=== PATIENT | female | born 1970 ===

== ENCOUNTER → 2017-01-20 | Outpatient (CLI) | payer MEDICAID | LOC: CIMAGING 10:22 | PROVIDERS: ATTEND Family Medicine | DX: R94.5 Abnormal results of liver function studies (principal); K76.0 Fatty (change of) liver, not elsewhere classified | CPT/HCPCS: 76705-PO ==

== ENCOUNTER 2017-04-19 03:04 | Observation (INO) | payer MEDICAID ==
--- NOTE | 2017-04-19 03:19 | CPEKG ---
Heart Rate: 158 RR Interval: 380 QRSD Interval: 72 QT Interval: 296 QTC Interval: 480 QRS [place]: 50 T Wave [place]: -40 EKG Severity - ABNORMAL ECG - EKG Impression: ATRIAL FIBRILLATION, V-RATE 94-195 EKG Impression: BORDERLINE T ABNORMALITIES, INFERIOR LEADS Electronically Signed By: Nissa Gordon 19-Apr-2017 06:25:01
[2017-04-19] MEDS ORDERED: DILTIAZEM 125 MG in NS 100 ML IV ONE (03:27)
[2017-04-19] MEDS ORDERED: DILTIAZEM 25 MG/5 ML VIAL IVP ONE (03:27)
[2017-04-19 03:30] LABS: % IMMATURE GRANULYOCYTES 1.3 % (0.0-1.1); ABSOLUTE IMMATURE GRANULOCYTES 0.16 10^3/uL (0.00-0.10); ADD DIFF? NO; ADD MORPH? NO; ADD SCAN? NO; ATYPICAL LYMPHOCYTE FLAG 10 (0-99); FRAGMENT RBC FLAG 0 (0-99); HEMATOCRIT 42.4 % (38.0-47.0); HEMOGLOBIN 14.6 g/dL (12.6-16.3); LEFT SHIFT FLG 10 (0-99); LIPEMIA HEMOLYSIS FLAG 90 (0-99); MEAN CELL HEMOGLOBIN 29.3 pg (27.9-34.1); MEAN CELL HEMOGLOBIN CONCENTR. 34.4 g/dL (32.4-36.7); MEAN CELL VOLUME 85.1 fL (81.5-99.8); MEAN PLATELET VOLUME 9.3 fL (8.7-11.7); PLATELET CLUMPS FLAG 10 (0-99); PLATELET COUNT 371 10^3/uL (150-400); RED BLOOD CELL COUNT 4.98 10^6/uL (4.18-5.33)
[2017-04-19] MEDS ORDERED: NS 1,000 ML IV SCH (03:30)
[2017-04-19 03:42] LABS: ALANINE AMINOTRANSFERASE 166 IU/L (9-52); ALKALINE PHOSPHATASE 139 IU/L (38-126); ANION GAP 14 mEq/L (8-16); ASPARTATE AMINOTRANSFERASE 60 IU/L (14-46); BILIRUBIN,TOTAL 0.7 mg/dL (0.1-1.4); BILIRUBIN-CONJUGATED 0.5 mg/dL (0.0-0.5); BILIRUBIN-UNCONJUGATED 0.2 mg/dL (0.0-1.1); CALCIUM 9.1 mg/dL (8.5-10.4); CARBON DIOXIDE 23 mEq/l (22-31); CHLORIDE 102 mEq/L (97-110); CREATININE 0.5 mg/dL (0.6-1.0); GLOMERULAR FILTRATION RATE > 60; GLUCOSE 160 mg/dL (70-100); MAGNESIUM 2.1 mg/dL (1.6-2.3); SODIUM 139 mEq/L (134-144); TOTAL PROTEIN 7.2 g/dL (6.3-8.2)
--- NOTE | 2017-04-19 03:51 | EDPHY ---
H & P Time Seen by Provider: 04/19/17 03:09 HPI/ROS: CC: "My heart is jiggling" HPI: This 46-year-old female with past medical history of back pain, uterine fibroids and hepatic steatosis, presents to the emergency department today complaining of a rapid heart rate that started around 10:30 p.m. last evening. She states she was awake and reading when she felt her heart start racing. She started monitoring her blood pressure and it dropped from 150mmHg to 120mmHg systolic. She felt some mild shortness of breath and lightheadedness. She denied chest pain, neck or jaw pain, back pain, or arm pain. She does admit to having an aching in her throat for the last couple of days. She has had no nausea or vomiting. She has felt hot and cold. She denies recent illness. No recent OTC medications. She does not drink alcohol. REVIEW OF SYSTEMS: Constitutional: No fever, no chills. Eyes: No discharge. ENT: See HPI. Respiratory: No cough. Cardiac: No chest pain. Gastrointestinal: No abdominal pain, no vomiting. Genitourinary: No hematuria or dysuria. LMP: 8 months ago Musculoskeletal: Chronic back pain. Skin: No rashes. Neurological: No headache. Past Medical/Surgical History: Past medical history includes back pain, uterine fibroids, hepatic steatosis Past surgical history includes tonsillectomy Family history includes father with some sort of heart condition Last menstrual period approximately 8 months ago and irregular She is not sexually active Allergies to penicillin Medications cromolyn and ibuprofen Primary care provider Dr. Estrella Smith Social History: The patient does not drink alcohol, use tobacco or marijuana products or illicit drugs Smoking Status: Never smoked Physical Exam: General Appearance: Alert, mild distress. Eyes: Pupils equal and round no pallor or injection. ENT, Mouth: Mucous membranes are moist. Respiratory: There are no retractions, lungs are clear to auscultation. No rales, rhonchi or wheezing. Cardiovascular: irregularly irregular, tachycardic. No murmur, gallops or rubs. Gastrointestinal: Abdomen is soft and nontender, no masses, bowel sounds normal. Neurological: Awake and alert, sensory and motor exams grossly normal. Skin: Warm and dry, no rashes. Musculoskeletal: Neck is supple nontender. Extremities are symmetrical, full range of motion. No calf tenderness, warmth, cords or erythema. Psychiatric: Patient is oriented X 3, there is no agitation. DIFFERENTIAL DIAGNOSIS: After history and physical exam differential diagnosis was considered for but not limited to: [atrial or ventricular tachycardia, a- fib with RVR, WPW, hyperthyroidism, electrolyte abnormality, anemia, cardiac ischemia] Constitutional: Initial Vital Signs Temperature (C) 97.5 F 04/19/17 03:05 Heart Rate 166 H 04/19/17 03:05 Respiratory Rate 16 04/19/17 03:05 Blood Pressure 114/97 H 04/19/17 03:05 O2 Sat (%) 97 04/19/17 03:05 O2 Delivery Mode Nasal Cannula O2 (L/minute) 2 Allergies/Adverse Reactions: Penicillins Allergy (Verified 04/19/17 03:21) Home Medications: Medication Instructions Recorded Cromolyn Sodium 04/19/17 Medical Decision Making - Diagnostics Imaging: I viewed and interpreted images myself (Portable CXR - NAD by my reading) ED Course/Re-evaluation: The patient was seen and examined. Vital signs reviewed. An IV was placed and labs were drawn. EKG revealed atrial fibrillation with a heart rate of 158 bpm. The patient was given 20 mg of Diltiazem IV push which dropped her blood pressure to 82 mmHg without increase in symptoms. Her heart rate also dropped to 102-128 bpm. She was given a fluid bolus which returned her blood pressure to 118mmHg systolic fairly quickly. A Diltiazem drip was started and titrated per protocol. Her labs showed a slightly elevated WBC count, BG 186, elevated transaminases (h/o elevated LFTs with hepatic steatosis), normal troponin. TSH is slightly elevated at 5.7. PT/PTT normal. Her portable chest x-ray showed no acute abnormality per my reading. She will be transferred to [facility] PCU for further evaluation and treatment after talking with the Hospitalist, Dr. Eder Taylor. [id number] VASc Score 1. - Data Points Laboratory Results: Laboratory Results 04/19/17 03:24 04/19/17 03:24 04/19/17 04/19/17 04/19/17 03:24 03:24 03:24 WBC 12.11 10^3/uL H 10^3/uL (3.80-9.50) RBC 4.98 10^6/uL 10^6/uL (4.18-5.33) Hgb 14.6 g/dL g/dL (12.6-16.3) Hct 42.4 % % (38.0-47.0) MCV 85.1 fL fL (81.5-99.8) MCH 29.3 pg pg (27.9-34.1) MCHC 34.4 g/dL g/dL (32.4-36.7) RDW 14.0 % % (11.5-15.2) Plt Count 371 10^3/uL 10^3/uL (150-400) MPV 9.3 fL fL (8.7-11.7) Neut % (Auto) 63.8 % % (39.3-74.2) Lymph % (Auto) 23.1 % % (15.0-45.0) [place] % (Auto) 6.1 % % (4.5-13.0) Eos % (Auto) 5.0 % % (0.6-7.6) Baso % (Auto) 0.7 % % (0.3-1.7) Nucleat RBC Rel Count 0.0 % % (0.0-0.2) Absolute Neuts (auto) 7.73 10^3/uL H 10^3/uL (1.70-6.50) Absolute Lymphs (auto) 2.80 10^3/uL 10^3/uL (1.00-3.00) Absolute Monos (auto) 0.74 10^3/uL 10^3/uL (0.30-0.80) Absolute Eos (auto) 0.60 10^3/uL H 10^3/uL (0.03-0.40) Absolute Basos (auto) 0.08 10^3/uL 10^3/uL (0.02-0.10) Absolute Nucleated RBC 0.00 10^3/uL 10^3/uL (0-0.01) Immature Gran % 1.3 % H % (0.0-1.1) Immature Gran # 0.16 10^3/uL H 10^3/uL (0.00-0.10) PT Pending INR Pending APTT Pending Sodium 139 mEq/L mEq/L (134-144) Potassium 4.0 mEq/L mEq/L (3.5-5.2) Chloride 102 mEq/L mEq/L (97-110) Carbon Dioxide 23 mEq/l mEq/l (22-31) Anion Gap 14 mEq/L mEq/L (8-16) BUN 9 mg/dL mg/dL (7-23) Creatinine 0.5 mg/dL L mg/dL (0.6-1.0) Estimated GFR > 60 Glucose 160 mg/dL H mg/dL (70-100) Calcium 9.1 mg/dL mg/dL (8.5-10.4) Magnesium 2.1 mg/dL mg/dL (1.6-2.3) Total Bilirubin 0.7 mg/dL mg/dL (0.1-1.4) Conjugated Bilirubin 0.5 mg/dL mg/dL (0.0-0.5) Unconjugated Bilirubin 0.2 mg/dL mg/dL (0.0-1.1) AST 60 IU/L H IU/L (14-46) ALT 166 IU/L H IU/L (9-52) Alkaline Phosphatase 139 IU/L H IU/L (38-126) Troponin I < 0.012 ng/mL ng/mL (0.000-0.034) Total Protein 7.2 g/dL g/dL (6.3-8.2) Albumin 4.0 g/dL g/dL (3.5-5.0) TSH 5.740 uIU/mL H uIU/mL (0.465-4.680) Medications Given: Sodium Chloride (Ns) 1,000 mls @ 500 mls/hr IV CONT MONTY Stop: 10/16/17 03:29 Last Admin: 04/19/17 03:41 Dose: 1,000 mls Discontinued Medications Diltiazem HCl (Cardizem 25 Mg/5 Ml Vial) 20 mg IVP EDNOW ONE Stop: 04/19/17 03:28 Last Admin: 04/19/17 03:35 Dose: 20 mg Diltiazem HCl 125 mg/ Sodium (Chloride) 125 mls @ 0 mls/hr IV EDNOW ONE; Titrate PRN Reason: Protocol Stop: 04/19/17 03:28 Last Admin: 04/19/17 03:51 Dose: 125 mls
[2017-04-19 04:09] LABS: TROPONIN I < 0.012 ng/mL (0.000-0.034)
[2017-04-19 04:22] LABS: INR 1.02 (0.83-1.16); PROTIME(PATIENT) 13.1 SEC (12.0-15.0)
[2017-04-19] MEDS ORDERED: NS 1,000 ML IV ONE (05:33)
[2017-04-19] MEDS ORDERED: oxyCODONE IR 5 MG TAB PO PRN (07:13)
[2017-04-19] MEDS ORDERED: ONDANSETRON DISINTEGRATING 4 MG TAB PO PRN (07:13)
[2017-04-19] MEDS ORDERED: DILTIAZEM 125 MG in D5W 125 ML IV SCH (07:15)
--- NOTE | 2017-04-19 07:56 | GHP ---
[f rep st] HISTORY AND PHYSICAL DATE OF ADMISSION: 04/19/2017 CHIEF COMPLAINT: Palpitations. HISTORY OF PRESENT ILLNESS: This is a 46-year-old female who has a history of back pain, who present s with a feeling of some palpitations associated with dizziness. She took her blood pressure and it was initially elevated. She took it again and it was back in its normal range. She did have some di zziness and possibly a small headache associated with this. She has not fainted. She says that for the past few days she has felt some strain across her chest as though she did yoga too long. She als o says that she had some sensation in her throat of something abnormal. She has never been treated f or hypertension or diabetes. PAST MEDICAL/SURGICAL HISTORY: Back pain. MEDICATIONS: Please see medication reconciliation. ALLERGIES: Penicillin. SOCIAL HISTORY: She is accompanied by her cousin. FAMILY HISTORY: Reviewed and noncontributory. REVIEW OF SYSTEMS: Ten-point review of systems is conducted and is negative except per HPI. PHYSICAL EXAM: VITAL SIGNS: Blood pressure 114/80, heart rate 114, respiration rate 20, saturating 94% on 2 L. GENERAL: The patient is a pleasant female who is resting comfortably in bed, no acute d istress. HEENT: Normocephalic, atraumatic. CARDIOVASCULAR: She is tachycardic. She is irregularl y irregular. There are no murmurs, rubs, or gallops. No elevated JVD. She has trace bilateral lowe r extremity edema. ABDOMEN: Soft, nontender, nondistended. SKIN: No rash. : No Theodore. NEUROLO GIC: She is alert and oriented x3. She is moving all extremities. PSYCHIATRIC: Normal mood and af fect. LABORATORY DATA: White count of 12.1 with a normal distribution. INR is 1. Creatinine 0.5, AST is 60, ALT is 166. TSH is 5.7. DATA: 1. I discussed this with Dr. Gordon. Will admit to PCU. 2. I reviewed her chest x-ray. This shows somewhat under-penetrated study. Normal heart size. Not kike acute. 3. I personally viewed and interpreted her EKG. This shows atrial fibrillation. She has T-wave inv ersions in II, III and aVF. IMPRESSION AND PLAN: A 46-year-old female with new-onset atrial fibrillation. 1. Atrial fibrillation: Still tachycardic on diltiazem drip. Will continue this and up-titrate. H er blood pressure thus far is tolerating it. If she does not convert to sinus rhythm or if we have s ignificant problems controlling her rate, would consider cardiology consultation for GILLIAN cardioversio n. Her CHADS2-VASc score is 1. I have started her on an aspirin. In terms of the reason why she we nt into AFib, she has a slightly elevated TSH, which does not explain it. Will check an echocardiogr am. She complained of right-sided pleuritic rib pain. I will check a D-dimer. If this is positive, would consider CT angiogram, especially if echocardiogram is unremarkable or shows increased right-s ided pressures. 2. Elevated liver function tests: She has a recent ultrasound showing hepatic steatosis, which like ly explains this. /[id number]/MODL
[2017-04-19] MEDS: NS 1,000 ML IV SCH ×2 (07:59→21:42)
[2017-04-19] MEDS: ASPIRIN EC 81 MG TAB PO SCH ×2 (07:59→10:06)
[2017-04-19] MEDS: ACETAMINOPHEN 325 MG TAB PO PRN ×2 (09:15→21:41)
--- NOTE | 2017-04-19 10:30 | ECHO ---
[email or web address] [address] [address] Main: [phone] Fax: Transthoracic Echocardiogram Name: RICHARD PIEDRA MR#: [id number] Study Date: 04/19/2017 Study Time: 07:48 AM Date of : 1970 Age: 46 year(s) Height: 160 cm (63 in.) Weight: 94.35 kg (208 lb.) BSA: 1.97 m2 Gender: Female Examination: Echo Indication: Image Quality: Adequate Contrast: Requested by: Andrew Taylor Heart Rate: Rhythm: Atrial fibrillation BP: 93 mmHg/63 mmHg Procedure Staff Ordering Physician: C[employer] Worker: Tiera King Reading Physician: Measurements: Chambers Valvular Assessment AV/MV Valvular Assessment TV/PV Normal Normal Normal Name Value Range Name Value Range Name Value Range Ao [place] (MM): 3.0 cm (2.2 cm-3.7 AV meanP mmHg ( - ) TR Vmax: 2.16 mm/s ( - ) cm) MV E Vmax: 0.83 cm/s ( - ) TR PGmax: 19 mmHg ( - ) IVSd (2D): 1.0 cm (0.6 cm-1.1 syst. PAP: 24 mmHg ( - ) cm) LVDd (2D): 4.3 cm (3.9 cm-5.3 cm) LVDs (2D): 2.3 cm (2.1 cm-4 cm) LVPWd (2D): 1.0 cm ( - ) LVEF (2D): 78 (>=54 %) Continued Measurements: Chambers Valvular Assessment AV/MV Valvular Assessment TV/PV Name Value Name Value Name Value LA Area: 25.5 cm? MV E/E' Septal: 6.30 CVP (est.): 5 LA Volume: 86 ml MV E/E' Lateral: 8.20 LA Volume Index: 43.7 ml/m? Findings: Left Ventricle: Normal size left ventricle. Mild concentric LV hypertrophy. Global hypercontractility of the left ventricle (EF 78 %). No LVOT obstruction. Right Ventricle: Normal size right ventricle. Patient: RICHARD PIEDRA Study Date: 04/19/2017 Page 1 of 2 07:48 AM Left Atrium: The left atrium is normal in size. Right Atrium: The right atrium is normal in size. Mitral Valve: The mitral valve is normal in appearance. Aortic Valve: The aortic valve is normal in appearance. Tricuspid Valve: The tricuspid valve appears normal. Trivial to mild tricuspid valve regurgitation. Pulmonic Valve: Pulmonary valve not well visualized. Great Vessels: Pericardium: No pericardial effusion. There is pericardial fat. (No Signature Object) Patient: RICHARD PIEDRA Study Date: 04/19/2017 Page 2 of 2 07:48 AM [id number]
--- NOTE | 2017-04-19 13:52 | HOSPPROG ---
Hospitalist Progress Note Assessment/Plan: # acute atrial fibrillation with rapid ventricular response- patient with heart rates in the 160s at presentation EKG (personally reviewed and interpreted) atrial fibrillation heart rates [address]-T changes - TSH 5.7 and Dimer negative TTE (reviewed) without acute changes ejection fraction greater than 70% oxygen saturations 96% on 2L - continue IV diltiazem drip - cardiology consulted for possible GILLIAN cardioversion - cont aspirin # hepatic steatosis- mild elevation in transaminases AST 80's /ALT 160's # prophylaxis Lovenox # diet NPO until cardiology eval # disposition greater than 2 midnights as patient needs more diagnostic workup for atrial fibrillation and possible cardioversion I have discussed the case with Cardiology they will consult and provide recommendations related to cardioversion Subjective: hungry Objective: Vital Signs Temp Pulse Resp BP Pulse Ox 37.1 C 108 H 16 109/80 92 04/19/17 11:44 04/19/17 12:11 04/19/17 11:44 04/19/17 11:44 04/19/17 11:44 04/18/17 04/19/17 04/20/17 05:59 05:59 05:59 Intake Total 1500 Output Total 950 Balance 550 PT 13.1 SEC (12.0-15.0) 04/19/17 03:24 INR 1.02 (0.83-1.16) 04/19/17 03:24 - Physical Exam Constitutional: obese Eyes: anicteric sclera Ears, Nose, Mouth, Throat: moist mucous membranes Cardiovascular: irregularly irregular, tachycardia Respiratory: no respiratory distress Gastrointestinal: normoactive bowel sounds, soft, non-tender abdomen Genitourinary: no bladder fullness Skin: warm Musculoskeletal: No asymmetric calves Neurologic: AAOx3 Psychiatric: interacting appropriately, not anxious Lymph, Heme, Immunologic: no cervical LAD ICD10 Worksheet Patient Problems: Problems Problem Status Onset Atrial fibrillation with rapid ventricular response Acute - ICD10 Problem Qualifiers (1) Atrial fibrillation with rapid ventricular response
--- NOTE | 2017-04-19 16:20 | PDCARPN ---
Cardiology Progress Note Assessment/Plan: Assessment: Atrial Flutter with ventricular rate 140 to 160 on admission. Diltiazem IV drip started and rate now down to 80 with episodes of faster flutter. She is tolerating it well. Her CHADS VASC score is 1. Will plan to make her NPO at [place] for GILLIAN-DCCV in AM if she has not converted to sinus rhythm by morning. We will start her on Eliquis this evening to provide anticoagulation for prior to procedure. She is in agreement with this plan. This was discussed with her son during the visit. Plan: Start Eliquis this evening. GILLIAN / DCCV in AM if not converted. 04/19/17 16:15 Reviewed/Discussed With: family, hospitalist, multidisciplinary team Time Spent With Patient: 30 minutes face to face Objective: Vital Signs (8 Hrs) Temp Pulse Resp BP Pulse Ox 04/19/17 12:11 108 H 04/19/17 11:44 37.1 C 96 16 109/80 92 Intake/Output (24 Hrs) 04/18/17 04/19/17 04/20/17 05:59 05:59 05:59 Intake Total 1500 Output Total 950 Balance 550 Intake: IV Infused (ml) 1500 Output: Urine (ml) 950 Other: Weight 94.347 kg Number of Voids Toilet 1 Result Diagrams: 04/19/17 03:24 04/19/17 03:24 Cardiac Labs: Cardiac Lab Results (72 Hrs) 04/19/17 12:25 Troponin I 0.025 - Physical Exam Cardiovascular: no murmurs, no rubs, no gallops, irregularly irregular Respiratory: clear to auscultate bilat, no crackles, no wheezes Skin: warm, no edema Neurologic: AAOx3 Psychiatric: cooperative, interactive ICD10 Worksheet Patient Problems: Problems Problem Status Onset Atrial fibrillation with rapid ventricular response Acute
[2017-04-19] MEDS: APIXABAN 5 MG TAB PO SCH (20:13)
[2017-04-19] MEDS: DILTIAZEM 30 MG TAB PO SCH (20:13)
[2017-04-20] MEDS: DILTIAZEM 30 MG TAB PO SCH ×2 (00:46→06:25)
[2017-04-20 04:19] VITALS: O2SAT 94
[2017-04-20 05:35] LABS: INR 1.14 (0.83-1.16); PROTIME(PATIENT) 14.5 SEC (12.0-15.0)
[2017-04-20 05:36] LABS: APTT 31.1 SEC (23.0-38.0)
[2017-04-20 05:37] LABS: % IMMATURE GRANULYOCYTES 1.5 % (0.0-1.1); ABSOLUTE IMMATURE GRANULOCYTES 0.15 10^3/uL (0.00-0.10); ADD DIFF? NO; ADD MORPH? NO; ADD SCAN? NO; ATYPICAL LYMPHOCYTE FLAG 0 (0-99); FRAGMENT RBC FLAG 0 (0-99); HEMATOCRIT 38.5 % (38.0-47.0); HEMOGLOBIN 12.6 g/dL (12.6-16.3); LEFT SHIFT FLG 10 (0-99); LIPEMIA HEMOLYSIS FLAG 80 (0-99); MEAN CELL HEMOGLOBIN 29.1 pg (27.9-34.1); MEAN CELL HEMOGLOBIN CONCENTR. 32.7 g/dL (32.4-36.7); MEAN CELL VOLUME 88.9 fL (81.5-99.8); MEAN PLATELET VOLUME 10.1 fL (8.7-11.7); PLATELET CLUMPS FLAG 0 (0-99); PLATELET COUNT 320 10^3/uL (150-400); RED BLOOD CELL COUNT 4.33 10^6/uL (4.18-5.33); RED CELL DISTRIBUTION WIDTH 14.2 % (11.5-15.2)
[2017-04-20 05:45] LABS: ANION GAP 9 mEq/L (8-16); CALCIUM 8.9 mg/dL (8.5-10.4); CARBON DIOXIDE 22 mEq/l (22-31); CHLORIDE 109 mEq/L (97-110); CREATININE 0.6 mg/dL (0.6-1.0); GLOMERULAR FILTRATION RATE > 60; GLUCOSE 114 mg/dL (70-100); POTASSIUM 4.2 mEq/L (3.5-5.2); SODIUM 140 mEq/L (134-144)
[2017-04-20] MEDS ORDERED: ATROPINE SULFATE 1 MG/10 ML SYR IVP ONE (06:00)
[2017-04-20 08:09] VITALS: BP 138/88; PULSE 75; RESP 16; TEMP 97.8
[2017-04-20] MEDS: APIXABAN 5 MG TAB PO SCH (08:27)
--- NOTE | 2017-04-20 08:35 | CPEKG ---
Heart Rate: 73 RR Interval: 822 P-R Interval: 164 QRSD Interval: 68 QT Interval: 392 QTC Interval: 432 P [place]: 27 QRS [place]: 50 T Wave [place]: 21 EKG Severity - NORMAL ECG - EKG Impression: SINUS RHYTHM Electronically Signed By: Juainta Harley 20-Apr-2017 09:59:20
[2017-04-20] MEDS ORDERED: FLU VACC QS 2017-18 (3YR+)/PF 0.5 ML SYR (FLUARIX QUAD) IM ONE (10:50)
[2017-04-20] MEDS ORDERED: DILTIAZEM 30 MG TAB PO SCH (18:30)
--- NOTE | 2017-04-20 18:44 | PDCARPN ---
Cardiology Progress Note Assessment/Plan: Assessment: Atrial Flutter with ventricular rate 140 to 160 on admission. Diltiazem IV drip started and rate now down to 80 with episodes of faster flutter. She is tolerating it well. Her CHADS VASC score is 1. Will plan to make her NPO at [place] for GILLIAN-DCCV in AM if she has not converted to sinus rhythm by morning. We will start her on Eliquis this evening to provide anticoagulation for prior to procedure. She is in agreement with this plan. This was discussed with her son during the visit. Plan: Start Eliquis this evening. GILLIAN / DCCV in AM if not converted. 04/19/17 16:15 04/20/17 18:41 She spontainiously converted this morning to RSR. She is feeling well with no palpitations, SOB, or edema. She will be discharged on ASA 81 mg QD, and Metoprolol 12.5 mg BID for rate control. Follow up in office in 7 to 10 days for EKG and medication management. Objective: Intake/Output (24 Hrs) 04/19/17 04/20/17 04/21/17 05:59 05:59 05:59 Intake Total 1500 690 Output Total 950 Balance 550 690 Intake: Oral (ml) 690 IV Infused (ml) 1500 Output: Urine (ml) 950 Other: Weight 94.347 kg Number of Voids Toilet 3 Result Diagrams: 04/20/17 04:08 04/20/17 04:08 Cardiac Labs: Cardiac Lab Results (72 Hrs) 04/19/17 04/19/17 18:35 12:25 Troponin I 0.013 0.025 - Physical Exam Constitutional: no apparent distress Cardiovascular: regular rate and rhythm, no murmurs, no rubs, no gallops Respiratory: clear to auscultate bilat, no crackles, no wheezes Skin: warm, no edema Neurologic: AAOx3 Psychiatric: cooperative, interactive ICD10 Worksheet Patient Problems: Problems Problem Status Onset Atrial fibrillation with rapid ventricular response Acute
--- NOTE | 2017-04-20 23:03 | GDS ---
[f rep st] DISCHARGE SUMMARY DISCHARGE DIAGNOSES: Include: 1. Acute atrial fibrillation with rapid ventricular response. 2. Hepatic steatosis. 3. Obesity. HISTORY OF PRESENT ILLNESS: This is a 46-year-old female, who presents with complaints of chest pres sure and palpitations with lightheadedness. For details of patient's initial presentation, please se e the History and Physical dated 04/19/2017. CONSULTATIVE SERVICES: Include Cardiology. PROCEDURES: 04/19/2017: Patient had a transthoracic echocardiogram that showed normal LV size, func tion and valves. HOSPITAL COURSE: By issue: 1. Atrial fibrillation with rapid ventricular response. The patient was admitted, placed on telemet ry, as well as a diltiazem drip. She spontaneously converted to sinus rhythm prior to a planned card ioversion. The patient was initiated on aspirin daily, as well as scheduled beta blockade. She will be discharged with both metoprolol, as well as aspirin daily, and is to follow in the outpatient set ting with Cardiology. She is to see Dr. Villalta in 2-4 weeks for her first post hospitalization follo wup and potential risk stratification. 2. Hepatic steatosis. Patient did have mild elevation in her transaminases. No additional workup w as initiated during this hospital stay. MEDICATIONS AT THE TIME OF DISPOSITION: Please reference med rec printed on 04/20/2017. PENDING STUDIES: At the time of this dictation are none. FOLLOWUP APPOINTMENTS: Include in the next 2-[address] Villalta at [facility] for her first post disposition followup and discussion related to cardiac risk stratification. I spent greater than 30 minutes in the planning and coordination of this discharge. /[id number]/MODL
--- NOTE | 2017-04-21 09:26 | ASDISCHSUM ---
Discharge Information Plan Status:Home with No Needs Medically Cleared to Leave:04/20/2017 Discharge Date:04/20/2017 11:27 AM CM D/C Disposition:Home, Routine, Self-Care ADT D/C Disposition:Home, Routine, Self-Care Projected Discharge Date:04/20/2017 12:00 AM Transportation at D/C: Discharge Delay Reason: Follow-Up Date:04/20/2017 12:00 AM Discharge Slot: Final Diagnosis: Placement Information Patient Contact Information Contact Name:NANNETTE Relationship:Cousin Address: Work Phone: City: [facility] Phone: State/Make Meaning Code: Email: Financial Information Financial Class: Primary Plan Desc:[employer] TRAINING LEAD Primary Plan Number:[id number] Secondary Plan Desc: Secondary Plan Number: Assessment Information Intervention Information
== END 2017-04-20 11:27 | disposition home or self-care (01) ==
LOC: CED 03:04 → CEDHOLD 03:55 → F2W 06:25
PROVIDERS: ADMIT Student in an Organized Health Care Education/Training Program; ATTEND Hospitalist
PROC: 3E033RZ Introduction of Antiarrhythmic into Peripheral Vein, Percutaneous Approach (ICD-10-PCS; principal; 2017-04-19)
PROC: B246ZZ4 Ultrasonography of Right and Left Heart, Transesophageal (ICD-10-PCS; 2017-04-19)
DX: I48.91 Unspecified atrial fibrillation (principal); R00.0 Tachycardia, unspecified; K76.0 Fatty (change of) liver, not elsewhere classified; E66.9 Obesity, unspecified; M54.5 Low back pain; Z23 Encounter for immunization
CPT/HCPCS: 71010; 90471; 93005; 93306; G0378; 80048-PO; 80076-PO; 83520-90; 83735-PO; 84443-PO; 84484-PO; 84703-PO; 85025-PO; 85610-PO; 85730-PO; G0008